=== PATIENT | male | born 1965 | race Caucasian/White ===

== ENCOUNTER 2024-10-26 02:12 | Emergency (ER) | payer OTHER ==
[2024-10-26] MEDS ORDERED: ALBUTEROL 2.5 MG/3 ML NEB SOL ONE (03:00)
[2024-10-26] MEDS ORDERED: IPRATROPIUM BROM 0.5MG/2.5ML ONE (03:00)
[2024-10-26] MEDS ORDERED: ASPIRIN 81 MG CHEWABLE TABLET ONE (03:01)
[2024-10-26 03:18] LABS: D-Dimer 0.582 FEUug/mL (0-0.500); PT Prothrombin Time 12.9 SECONDS (10-13.0); Protime INR 1.14
[2024-10-26 03:19] LABS: Absolute Basophils 0.1 K/uL (0-0.5); Absolute Eosinophils 0.2 K/uL (0-0.5); Absolute Monocytes 1.4 K/uL (0.1-1.3); Absolute Neutrophil 7.4 K/uL (1.8-8.0); Basophils % 0.5 % (0-1.3); Hematocrit 32.6 % (39.6-49.0); Hemoglobin 11.1 g/dL (13.6-17.9); Lymphocytes % 17.7 % (15.3-44.8); MCH 29.8 pg (27.0-35.0); MCHC 33.9 g/dL (32.0-36.0); MCV 87.9 fL (80-100); MPV 7.8 fL (7.6-11.3); Neutrophils % 66.8 % (41.7-73.7); Nucleated Red Blood Cells % 0.1 % (0-0); Platelets 450 thou/uL (152-406); RBC Red Blood Cell Count 3.71 M/uL (4.33-5.43); Red Cell Distribution Width 12.8 % (12.1-15.2)
[2024-10-26 03:32] LABS: ALT/SGPT 31 U/L (16-61); AST/SGOT 40 U/L (15-37); Albumin 2.7 g/dL (3.4-5.0); Albumin/Globulin Ratio 0.6 (1.1-1.8); Alkaline Phosphatase 223 U/L (45-117); Anion Gap 16.7 mEq/L (5.0-15.0); BUN Blood Urea Nitrogen 81 mg/dL (7-18); Bicarbonate 20 mEq/L (21-32); Bilirubin Total 0.4 mg/dL (0.2-1.0); Globulin 4.7 g/dL (2.3-3.5); Glomerular Filtration Rate 13 ml/min (=/>90); NT PRO-BNP 9811 pg/mL (<125); Potassium 4.7 mEq/L (3.5-5.1); Protein, Total 7.4 g/dL (6.4-8.2); Sodium Level 133 mEq/L (136-145)
[2024-10-26 03:33] LABS: Bilirubin Direct < 0.2 mg/dL (0-0.2); Bilirubin Indirect, Calculated 0.2 mg/dL (0.2-0.8); Glucose Level 418 mg/dL (74-106)
[2024-10-26 04:03] LABS: Influenza A Ag Negative; Influenza B Ag Negative; SARS-CoV-2 Antigen Rapid Res Negative (Negative)
--- NOTE | 2024-10-26 04:05 | EDPHYS ---
Physician Documentation [facility] Name: Pro Cruz Age: 59 yrs Sex: Male : 1965 Arrival Date: 10/26/2024 Time: 02:12 Bed 15 Private MD: ED Physician Jair Mora HPI: 10/26 02:55 This 59 yrs old Male presents to ER via Wheelchair with complaints of Chest Tightness, cp Shortness Of Breath. 02:55 The patient has shortness of breath with light activity, that woke him/her from sleep. cp 02:55 Onset: The symptoms/episode began/occurred gradually. Duration: The symptoms are cp continuous, and are steadily getting worse. Associated signs and symptoms: Pertinent positives: non-productive cough, Pertinent negatives: diaphoresis, fever, hemoptysis. Severity of symptoms: in the emergency department the symptoms are unchanged despite home interventions. Historical: - Allergies: 02:15 No Known Allergies; rg5 - PMHx: 02:15 Diabetes mellitus; Hypertensive disorder; rg5 - Immunization history:: Adult Immunizations not up to date. - Infectious Disease History:: Denies. - Social history:: Smoking status: Patient denies any tobacco usage or history of. ROS: 03:00 Constitutional: Negative for body aches, chills, fever, poor PO intake, cp 03:00 Eyes: Negative for injury, pain, redness, and discharge, cp 03:00 ENT: Negative for drainage from ear(s), ear pain, sore throat, difficulty swallowing, difficulty handling secretions, 03:00 Cardiovascular: Positive for orthopnea, Negative for edema, palpitations, 03:00 Respiratory: Positive for cough, shortness of breath, Negative for hemoptysis, wheezing, 03:00 Abdomen/GI: Negative for abdominal pain, vomiting, diarrhea, constipation, 03:00 Neuro: Negative for altered mental status, dizziness, headache, syncope, near syncope, weakness, 03:00 Back: Positive for radiated pain, Negative for injury or acute deformity, cp 03:00 All other systems are negative, cp Exam: 02:57 ECG was reviewed by the Attending Physician. cp 03:03 Constitutional: The patient appears in no acute distress, alert, awake, cp non-diaphoretic, non-toxic, well developed, well nourished, 03:03 Head/Face: Normocephalic, atraumatic. cp 03:03 Eyes: Periorbital structures: appear normal, Conjunctiva: normal, no exudate, no injection, Sclera: no appreciated abnormality, Lids and lashes: appear normal, bilaterally, 03:03 ENT: External ear(s): are unremarkable, Nose: is normal, Mouth: Lips: moist, Oral mucosa: moist, Posterior pharynx: Airway: no evidence of obstruction, patent, 03:03 Neck: ROM/movement: is normal, is supple, without pain, no range of motions limitations, 03:03 Chest/axilla: Inspection: normal, Palpation: is normal, no crepitus, no tenderness, 03:03 Cardiovascular: Rate: tachycardic, Rhythm: regular, Edema: ankle edema, that is very mild, JVD: is not appreciated, 03:03 Respiratory: the patient does not display signs of respiratory distress, Respirations: labored breathing, is not present, shallow respirations, that is mild, Breath sounds: decreased breath sounds, that are mild, throughout, stridor, is not appreciated, wheezing: is not appreciated, 03:03 Abdomen/GI: Inspection: obese Palpation: abdomen is soft and non-tender, in all quadrants, 03:03 Back: pain, is absent, ROM is normal, 03:03 Neuro: Orientation: to person, place \T\ time. Mentation: is normal, Motor: moves all fours, strength is normal, Sensation: is normal, Vital Signs: 02:15 BP 106 / 82; Pulse 101; Resp 18; Temp 98.2(O); Pulse Ox 97% on R/A; Weight 81.65 kg; rg5 Height 5 ft. 7 in. ; Pain 4/10; 03:20 BP 107 / 79; Pulse 101; Resp 18; Pulse Ox 100% on R/A; Pain 4/10; rg5 04:00 BP 121 / 83; Pulse 108; Resp 18; Pulse Ox 97% on 2 lpm NC; rg5 05:10 BP 114 / 81; Pulse 113; Resp 19; Temp 98; Pulse Ox 97% on 2 lpm NC; Pain 0/10; rg5 06:21 BP 107 / 71; Pulse 105; Resp 18; Pulse Ox 100% on 2 lpm NC; Pain 0/10; rg5 02:15 Body Mass Index 28.19 (81.65 kg, 170.18 cm) rg5 02:15 Pain Scale: Adult rg5 03:20 Pain Scale: Adult rg5 05:10 Pain Scale: Adult rg5 06:21 Pain Scale: Adult rg5 MDM: 02:17 Medical Screening Exam initiated 04:05 Data reviewed: vital signs, nurses notes, lab test result(s), EKG, radiologic studies, cp plain films, I have discussed the patient's presentation/case with the attending Emergency Department Physician; and as a result, I will transfer patient. 04:05 I considered the following discharge prescriptions or medication management in the emergency department Medications were administered in the Emergency Department. See MAR. Independent interpretation of the following test(s) in the Emergency Department EKG: See my EKG interpretation above. Care significantly affected by the following chronic conditions: Diabetes, Hypertension. 10/26 02:55 Order name: Basic Metabolic Panel; Complete Time: 03:34 10/26 03:35 Interpretation: Normal except: NA 133; CO2 20; ANION GAP 16.7; GLUC 418; BUN 81; CRE cp 4.81; GFR 13. 10/26 02:55 Order name: CBC with Diff; Complete Time: 03:34 10/26 03:35 Interpretation: Normal except: WBC 11.00; RBC 3.71; HGB 11.1; HCT 32.6; PLT 450; MN% cp 13.0; MNA 1.4. 10/26 02:55 Order name: D-Dimer; Complete Time: 05: 10/26 03:35 Interpretation: Reviewed. 10/26 02:55 Order name: LFT's; Complete Time: 03:34 cp 10/26 02:55 Order name: Magnesium; Complete Time: 03:34 10/26 02:55 Order name: NT PRO-BNP; Complete Time: 03:34 10/26 03:35 Interpretation: Abnormal: NT PRO-BNP 9811. 10/26 02:55 Order name: PT-INR; Complete Time: 05:29 cp 10/26 02:55 Order name: Troponin HS; Complete Time: 03:34 cp 10/26 03:36 Interpretation: Abnormal: Troponin HS 3978.5. 10/26 02:55 Order name: COVID-19 Ag + Flu A+B Ag; Complete Time: 04:05 cp 10/26 04:27 Order name: PTT, Activated Partial Thromb; Complete Time: 05:29 EDMS 10/26 05:19 Order name: Glucose, Ancillary Testing; Complete Time: 05:29 EDMS 10/26 05:29 Interpretation: GLUC,ANCIL 341; Reviewed. cp 10/26 02:55 Order name: XRAY Chest (1 view) cp 10/26 02:55 Order name: Cardiac monitoring; Complete Time: 02:57 cp 10/26 02:55 Order name: EKG - Nurse/Tech; Complete Time: 02:57 cp 10/26 02:55 Order name: IV Saline Lock; Complete Time: 02:57 cp 10/26 02:55 Order name: Labs collected and sent; Complete Time: 02:57 cp 10/26 02:55 Order name: O2 Per Protocol; Complete Time: 02:57 cp 10/26 02:55 Order name: O2 Sat Monitoring; Complete Time: 02:57 cp 10/26 02:55 Order name: Accucheck Blood Glucose; Complete Time: 02:57 cp 10/26 03:45 Order name: Agustin; Complete Time: 04:59 cp EC:57 Rate is 103 beats/min. Rhythm is regular. ID interval is normal. QRS interval is cp normal. QT interval is normal. T waves are Inverted in lead aVL. Interpreted by me. Reviewed by me. Administered Medications: 03:00 Drug: DuoNeb Nebulize (2.5 mg - 0.5 mg) 3 ml Nebulizer once Route: Nebulizer; rg5 03:51 Follow up: Response: No adverse reaction rg5 03:00 Drug: Aspirin PO Chewable Tablet 324 mg PO once; 81 mg tablets x 4 Route: PO; rg5 03:50 Follow up: Response: No adverse reaction rg5 03:49 CANCELLED (Physician Discretion): [id number] mg PO once cp 04:35 Drug: Insulin Regular Human IVP 10 units IVP once {Co-Signature: lg3 (Rita Valadez RN).} rg5 Route: IVP; Site: right antecubital; 05:13 Follow up: Response: No adverse reaction rg5 04:41 Drug: Heparin ([place] Drip) 12 units/kg/hr - ([place] [address] units, D5W IV 500 ml) IV at rg5 calculated rate Per protocol; Max initial rate 1000 units/hr {Co-Signature: lg3 (Rita Valadez RN).} Route: IV; Rate: calculated rate; Site: right antecubital; 06:21 Follow up: IV Status: Infusion continued upon transfer rg5 04:41 Drug: Heparin (TN-Bolus with thrombolytic) - HEParin IVP 60 units/kg IVP once; Max 4000 rg5 units {Co-Signature: lg3 (Rita Valadez RN).} Route: IVP; Site: right antecubital; 05:13 Follow up: Response: No adverse reaction rg5 04:59 Drug: Furosemide IVP 40 mg IVP once; give over 2 minutes Route: IVP; Site: right rg5 antecubital; 05:34 Follow up: Response: No adverse reaction rg5 05:58 Drug: Insulin Regular Human Sub-Q 10 units Sub-Q once {Co-Signature: bm8 (george Vargas RN).} Route: Sub-Q; Site: abdomen; 06:23 Follow up: Response: No adverse reaction rg5 Disposition: 10/27 04:31 Critical Care:. cp Disposition Summary: 10/26/24 04:05 Transfer Ordered Notes: Transfer Location: [facility] cp Reason: Higher level of care cp Condition: Stable cp Problem: new cp Symptoms: have improved cp Accepting Physician: doctor(10/26/24 06:47) rg5 Diagnosis - Unspecified combined systolic (congestive) and diastolic (congestive) heart failure cp - Subsequent non-ST elevation (NSTEMI) myocardial infarction cp - Acute kidney failure, unspecified cp - Diabetes mellitus due to underlying condition with hyperglycemia cp Forms: - Medication Reconciliation Form cp - SBAR form cp Critical care time excluding procedures: 04:31 Critical care time: Bedside Care: 7 minutes, Consultation: 25 minutes, Family cp Intervention: 5 minutes. Total time: 37 minutes Addendum: 10/29/2024 15:39 Co-signature as Attending Physician, Jair Mora MD I agree with the assessment and c goodrich plan of care. Signatures: Dispatcher [employer] Jair Sparrow MD MD cha Page, Corey, PA PA cp Giovanni Mcleod RN RN rg5 Rita Valadez RN lg3 Raheem Vargas RN bm8 Corrections: (The following items were deleted from the chart) 10/26 02:56 02:56 BASIC METABOLIC PANEL+C.LAB.BRZ ordered. EDMS EDMS 02:56 02:56 CBC+H.LAB.BRZ ordered. EDMS EDMS 02:56 02:56 D-DIMER+COAG.LAB.BRZ ordered. EDMS EDMS 02:56 02:56 HEPATIC FUNCTION+C.LAB.BRZ ordered. EDMS EDMS 02:56 02:56 MAGNESIUM+C.LAB.BRZ ordered. EDMS EDMS 02:56 02:56 PROBNP+C.LAB.BRZ ordered. EDMS EDMS 02:56 02:56 PROTIME (+INR)+COAG.LAB.BRZ ordered. EDMS EDMS 02:56 02:56 Troponin High Sensitivity+C.LAB.BRZ ordered. EDMS EDMS 02:56 02:56 COVID-19 Ag + Flu A+B Ag+I.LAB.BRZ ordered. EDMS EDMS 02:56 02:56 Chest Single View+RAD.RAD.BRZ ordered. EDMS EDMS 03:49 03:48 Clopidogrel PO 300 mg PO once ordered. cp cp 04:06 04:05 doctor cp cp 06:47 04:06 doctor cp rg5
--- NOTE | 2024-10-26 04:05 | ER ---
Nurse's Notes [facility] Name: Pro Cruz Age: 59 yrs Sex: Male : 1965 Arrival Date: 10/26/2024 Time: 02:12 Bed 15 Private MD: Diagnosis: Unspecified combined systolic (congestive) and diastolic (congestive) heart failure;Subsequent non-ST elevation (NSTEMI) myocardial infarction;Acute kidney failure, unspecified;Diabetes mellitus due to underlying condition with hyperglycemia Presentation: 10/26 02:15 Chief complaint: Patient states: I am coughing up for 1 wk, it hurts on my chest rg5 already every time I cough, also having shortness of breath lately and I can't lie down flat. 02:15 Coronavirus screen: Client denies travel out of the [place] in the last 14 days. Ebola rg5 Screen: Patient negative for fever greater than or equal to 101.5 degrees Fahrenheit, and additional compatible Ebola Virus Disease symptoms Patient denies exposure to infectious person. Patient denies travel to an Ebola-affected area in the 21 days before illness onset. Initial Sepsis Screen: Does the patient meet any 2 criteria? No. Patient's initial sepsis screen is negative. Does the patient have a suspected source of infection? No. Patient's initial sepsis screen is negative. Risk Assessment: Do you want to hurt yourself or someone else? Patient reports no desire to harm self or others. Onset of symptoms was October 26, 2024. 02:15 Method Of Arrival: Wheelchair rg5 02:15 Acuity: JOHN 3 rg5 Triage Assessment: 02:15 General: Appears in no apparent distress. Behavior is calm, cooperative, appropriate rg5 for age. Pain: Complains of pain in chest Pain currently is 4 out of 10 on a pain scale. Quality of pain is described as aching. EENT: No deficits noted. Neuro: Level of Consciousness is awake, alert, obeys commands, Oriented to person, place, time, situation. Cardiovascular: Reports chest pain, shortness of breath. Respiratory: Reports shortness of breath cough that is productive, hacking, persistent pain with cough Airway is patent Trachea midline Respiratory effort is even, unlabored, Respiratory pattern is regular, symmetrical. GI: Abdomen is round non-distended, Abd is soft and non tender. : No signs and/or symptoms were reported regarding the genitourinary system. Derm: Skin is intact, Skin is dry, Skin is normal, Skin temperature is warm. Musculoskeletal: Circulation, motion, and sensation intact. Range of motion: intact in all extremities. Historical: - Allergies: 02:15 No Known Allergies; rg5 - PMHx: 02:15 Diabetes mellitus; Hypertensive disorder; rg5 - Immunization history:: Adult Immunizations not up to date. - Infectious Disease History:: Denies. - Social history:: Smoking status: Patient denies any tobacco usage or history of. Screenin:34 [facility] ED Fall Risk Assessment (Adult) History of falling in the last 3 months, rg5 including since admission No falls in past 3 months (0 pts) Confusion or Disorientation No (0 pts) Intoxicated or Sedated No (0 pts) Impaired Gait No (0 pts) Mobility Assist Device Used No (0 pt) Altered Elimination No (0 pt) Score/Fall Risk Level 0 - 2 = Low Risk Oriented to surroundings, Maintained a safe environment, Hourly rounding (assess needs \T\ fall precautionary measures) done. Abuse screen: Denies threats or abuse. Nutritional screening: No deficits noted. Tuberculosis screening: No symptoms or risk factors identified. Assessment: 02:36 Reassessment: see triage assessment. rg5 03:30 Reassessment: No changes from previously documented assessment. Patient and/or family rg5 updated on plan of care and expected duration. Pain level reassessed. Patient is alert, oriented x 3, equal unlabored respirations, skin warm/dry/pink. 03:30 Pain: Complains of pain in chest Pain does not radiate. Pain began 2-3 days ago. rg5 04:25 Reassessment: No changes from previously documented assessment. Patient and/or family rg5 updated on plan of care and expected duration. Pain level reassessed. Patient is alert, oriented x 3, equal unlabored respirations, skin warm/dry/pink. 05:00 Reassessment: No changes from previously documented assessment. Patient and/or family rg5 updated on plan of care and expected duration. Pain level reassessed. Patient is alert, oriented x 3, equal unlabored respirations, skin warm/dry/pink. 06:00 Reassessment: No changes from previously documented assessment. Patient and/or family rg5 updated on plan of care and expected duration. Pain level reassessed. Patient is alert, oriented x 3, equal unlabored respirations, skin warm/dry/pink. Vital Signs: 02:15 BP 106 / 82; Pulse 101; Resp 18; Temp 98.2(O); Pulse Ox 97% on R/A; Weight 81.65 kg; rg5 Height 5 ft. 7 in. ; Pain 4/10; 03:20 BP 107 / 79; Pulse 101; Resp 18; Pulse Ox 100% on R/A; Pain 4/10; rg5 04:00 BP 121 / 83; Pulse 108; Resp 18; Pulse Ox 97% on 2 lpm NC; rg5 05:10 BP 114 / 81; Pulse 113; Resp 19; Temp 98; Pulse Ox 97% on 2 lpm NC; Pain 0/10; rg5 06:21 BP 107 / 71; Pulse 105; Resp 18; Pulse Ox 100% on 2 lpm NC; Pain 0/10; rg5 02:15 Body Mass Index 28.19 (81.65 kg, 170.18 cm) rg5 02:15 Pain Scale: Adult rg5 03:20 Pain Scale: Adult rg5 05:10 Pain Scale: Adult rg5 06:21 Pain Scale: Adult rg5 ED Course: 02:13 Patient arrived in ED. [email or web address] 02:15 Arm band placed on right wrist. EKG completed in triage. Results shown to MD. rg5 02:17 Jair Mcclendon PA is PHCP. cp 02:17 Jair Mora MD is Attending Physician. cp 02:17 Giovanni Mcleod, ELAINE is Primary Nurse. rg5 02:29 Triage completed. rg5 02:34 Allergy band placed. Bed in low position. Call light in reach. Side rails up X 1. rg5 Client placed on continuous cardiac and pulse oximetry monitoring. NIBP monitoring applied. library monitor on. Pulse ox on. Door closed. Noise minimized. Warm blanket given. 02:34 No provider procedures requiring assistance completed. Patient maintains SpO2 rg5 saturation greater than 95% on room air. 03:45 XRAY Chest (1 view) In Process Unspecified. EDMS 05:14 Provided Education on: needs for transfer. rg5 05:14 Patient transferred, IV remains in place. intact, No redness/swelling at site. rg5 Administered Medications: 03:00 Drug: DuoNeb Nebulize (2.5 mg - 0.5 mg) 3 ml Nebulizer once Route: Nebulizer; rg5 03:51 Follow up: Response: No adverse reaction rg5 03:00 Drug: Aspirin PO Chewable Tablet 324 mg PO once; 81 mg tablets x 4 Route: PO; rg5 03:50 Follow up: Response: No adverse reaction rg5 03:49 CANCELLED (Physician Discretion): [id number] mg PO once cp 04:35 Drug: Insulin Regular Human IVP 10 units IVP once {Co-Signature: lg3 (Rita Valadez RN).} rg5 Route: IVP; Site: right antecubital; 05:13 Follow up: Response: No adverse reaction rg5 04:41 Drug: Heparin ([place] Drip) 12 units/kg/[place] ([place] [address] units, D5W IV 500 ml) IV at rg5 calculated rate Per protocol; Max initial rate 1000 units/hr {Co-Signature: [email or web address] (Rita Valadez RN).} Route: IV; Rate: calculated rate; Site: right antecubital; 06:21 Follow up: IV Status: Infusion continued upon transfer rg5 04:41 Drug: Heparin (ND-Bolus with thrombolytic) - HEParin IVP 60 units/kg IVP once; Max 4000 rg5 units {Co-Signature: lg3 (Rita Valadez RN).} Route: IVP; Site: right antecubital; 05:13 Follow up: Response: No adverse reaction rg5 04:59 Drug: Furosemide IVP 40 mg IVP once; give over 2 minutes Route: IVP; Site: right rg5 antecubital; 05:34 Follow up: Response: No adverse reaction rg5 05:58 Drug: Insulin Regular Human Sub-Q 10 units Sub-Q once {Co-Signature: bm8 (george Vargas RN).} Route: Sub-Q; Site: abdomen; 06:23 Follow up: Response: No adverse reaction rg5 Medication: 02:55 VIS not applicable for this client. rg5 Output: 06:20 Urine: 300ml (Agustin); Total: 300ml. rg5 Outcome: 04:05 ER care complete, transfer ordered by cp 05:14 Transferred by ground EMS Note: [facility] rg5 05:14 Condition: stable 05:14 Instructed on the need for transfer, 06:47 Patient left the ED. rg5 Signatures: Dispatcher [employer] EDMS Jair Mcclendon PA PA cp Jeffries, Jennifer jj6 Giovanni Mcleod RN RN rg5 Rita Valadez RN lg3 Raheem Vargas RN bm8 Corrections: (The following items were deleted from the chart) 02:53 02:15 Chief complaint: Patient states: I am coughing up for 1 wk, it hurts on my chest rg5 already every time. also having shortness of breath lately, can't lie down flat. rg5
[2024-10-26 04:31] LABS: PTT, Activated Partial Thromb 28.5 SECONDS (27.2-37.4)
[2024-10-26] MEDS ORDERED: HEPARIN 5000 UNIT/ML 1 ML VIAL ONE (04:32)
[2024-10-26] MEDS ORDERED: HEPARIN/D5W 25,000 UNIT/500 ML BAG IV ONE (04:33)
[2024-10-26] MEDS ORDERED: FUROSEMIDE 40 MG/4 ML VIAL ONE (04:33)
[2024-10-26] MEDS ORDERED: INSULIN REGULAR (HUMAN) 100 UNIT/ML ONE ×2 (04:33→05:58)
--- NOTE | 2024-10-26 06:28 | RAD REPORT ---
EXAM: XR Chest, 1 View CLINICAL HISTORY: The patient is 59 years old and is Male; Cough;SOB TECHNIQUE: Single view of the chest. COMPARISON: No relevant prior studies available. FINDINGS: Lungs: Innumerable small nodules in the lungs. Bibasilar infiltrates and/or atelectasis. Pleural space: Minimal pleural effusions. No pneumothorax. Heart: The cardiac silhouette is enlarged versus artifact of AP technique. Mediastinum: Unremarkable. Bones/joints: No acute fracture visualized. Upper abdomen: No free air in the visualized upper abdomen. IMPRESSION: Innumerable small nodules in the lungs. Bibasilar infiltrates and/or atelectasis. CT chest follow-up recommended, ideally with IV contrast. Electronically signed by: Celine Ashraf MD 10/26/2024 04:15 AM CDT V2 Due to temporary technical issues with the PACS/Vibe[employer] reporting system, reports are being josephine d by the in-house radiologist without review as a courtesy to ensure prompt reporting the interpreting radiologist is fully responsible for the content of the report. Transcribed Date/Time: 10/26/2024 6:28 AM
[2024-10-26 06:55] VITALS: TEMP 98
[2024-10-26 06:57] VITALS: BP 107/71; O2SAT 100
--- NOTE | 2024-10-28 11:25 | EKG ---
Test Date: 2024-10-26 Test Time: 02:50:27 Dye Colorist Dyer: MEASUREMENT RESULTS: Intervals: Rate: 103 UT: 186 QRSD: 86 QT: 352 QTc: 461 [place]: P: 41 UT: 186 QRS: 76 T: 110 INTERPRETIVE STATEMENTS: Sinus tachycardia ST depression, consider subendocardial injury Abnormal ECG No previous ECG available for comparison Electronically Signed On 10-28-24 11:19:35 CDT by Paul Anderson
== END 2024-10-26 06:47 | disposition short-term general hospital (02) ==
LOC: ER 02:12
DX: I50.40 Unspecified combined systolic (congestive) and diastolic (congestive) heart failure (principal); I22.2 Subsequent non-ST elevation (NSTEMI) myocardial infarction; I21.9 Acute myocardial infarction, unspecified; E11.65 Type 2 diabetes mellitus with hyperglycemia; N17.9 Acute kidney failure, unspecified; I10 Essential (primary) hypertension; Z11.52 Encounter for screening for COVID-19
CPT/HCPCS: 85025; 80048; 36415; 83735; 85610; 82947; 85379; 80076; 85730; 84484; 83880; 71045; 87428; J1644; J1940; J7613; J7644; J1815 ×2; 93005; 96365; 96366; 96372; 96375; 99285